=== PATIENT | male | born 1975 | race Two or more races ===

== ENCOUNTER 2022-11-05 19:46 | Emergency (ER) | payer MEDICAID ==
[2022-11-05] MEDS ORDERED: Aluminum Hydroxide/Magnesium Hydroxide/Simethicone Susp 30 ML Cup PO STA (20:14)
[2022-11-05 20:37] LABS: ESTIMATED GFR 107 mL/min (>60)
[2022-11-05 21:24] LABS: CORONAVIRUS COVID-19 NAA NEGATIVE (NEGATIVE)
[2022-11-05] MEDS: Pantoprazole 40 MG Tab.CR PO SCH (21:27)
[2022-11-05] MEDS ORDERED: OLANZapine 5 MG Tab PO ONE (21:36)
[2022-11-05] MEDS ORDERED: Ondansetron 4 MG Tab.DIS PO ONE (23:11)
[2022-11-06] MEDS: Pantoprazole 40 MG Tab.CR PO SCH (09:36)
== END 2022-11-06 13:39 | disposition home or self-care (01) ==
LOC: JP.ED 19:46
DX: R10.13 Epigastric pain (principal); F10.920 Alcohol use, unspecified with intoxication, uncomplicated; Z88.5 Allergy status to narcotic agent; Z20.822 Contact with and (suspected) exposure to COVID-19
CPT/HCPCS: 0241U; 36415; 80053; 80305; 80307; 81001; 83690; 85025; 99284; A9270; Q0162; 99283

== ENCOUNTER 2022-11-06 19:54 | Emergency (ER) | payer MEDICAID ==
[2022-11-06] MEDS ORDERED: OLANZapine 5 MG Tab PO ONE (19:57)
[2022-11-06] MEDS ORDERED: Aluminum Hydroxide/Magnesium Hydroxide/Simethicone Susp 30 ML Cup PO PRN (20:00)
[2022-11-06 20:35] LABS: ESTIMATED GFR 76 mL/min (>60)
== END 2022-11-07 08:58 | disposition home or self-care (01) ==
LOC: JP.ED 19:54
DX: K29.20 Alcoholic gastritis without bleeding (principal); F10.10 Alcohol abuse, uncomplicated; Z88.5 Allergy status to narcotic agent; Y90.8 Blood alcohol level of 240 mg/100 ml or more
CPT/HCPCS: 36415; 80053; 80307; 83690; 85025; 99284; A9270; 99282